=== PATIENT | female | born 1985 | race Caucasian/White ===

== ENCOUNTER 2023-02-27 10:59 | Day surgery (SDC) | payer BC ==
[2023-02-27 11:45] VITALS: BMI 41.3
[2023-02-27] MEDS ORDERED: hydrALAZINE 20 MG/ML VIAL SLOW IVP PRN (12:20)
[2023-02-28 13:54] LABS: Chlamydia by PCR, Vaginal Swab Not Detected (NotDetected); GC by PCR, Vaginal Swab Not Detected (NotDetected); Tric.vaginalis PCR,Vaginal Sw Not Detected (NotDetected)
== END 2023-02-27 13:49 | disposition home or self-care (01) ==
LOC: CSHLD/OP 10:59 → CSHLD 12:22 → CSHLD/OP 13:49
PROVIDERS: ATTEND Obstetrics & Gynecology
DX: Z36.89 Encounter for other specified antenatal screening (principal); O24.415 Gestational diabetes mellitus in pregnancy, controlled by oral hypoglycemic drugs; O13.3 Gestational [pregnancy-induced] hypertension without significant proteinuria, third trimester; O99.213 Obesity complicating pregnancy, third trimester; E66.9 Obesity, unspecified; Z3A.35 35 weeks gestation of pregnancy; Z79.84 Long term (current) use of oral hypoglycemic drugs; Z79.82 Long term (current) use of aspirin
CPT/HCPCS: 87480; 87491; 87510; 87591; 87660; 87661

== ENCOUNTER 2023-03-26 10:26 | Inpatient (IN) | payer OTHER ==
[2023-03-26 11:13] VITALS: BMI 41.3
[2023-03-26] MEDS ORDERED: Bicitra 30 ML UDCUP PO PRN (11:22)
[2023-03-26] MEDS ORDERED: Famotidine/PF 20 mg/2ml Vial SLOW IVP PRN (11:22)
[2023-03-26] MEDS ORDERED: Diphenoxylate HCl/Atropine Tablet PO PRN (11:22)
[2023-03-26] MEDS ORDERED: Tranexamic Acid 1,000 MG/10 ML VIAL IVP PRN (11:22)
[2023-03-26] MEDS ORDERED: Misoprostol 200 MCG TAB PR PRN (11:22)
[2023-03-26] MEDS ORDERED: Methylergonovine 0.2 MG/ML VIAL IM PRN (11:22)
[2023-03-26] MEDS ORDERED: Ondansetron PF 4 MG/2 ML Vial IVP PRN ×4 (11:22→23:01)
[2023-03-26] MEDS ORDERED: hydrALAZINE 20 MG/ML VIAL SLOW IVP PRN ×2 (11:22→13:17)
[2023-03-26] MEDS ORDERED: Promethazine HCl 25 MG/ML VIAL IM PRN ×3 (11:22→23:01)
[2023-03-26] MEDS ORDERED: Carboprost 250 MCG/ML AMP IM PRN (11:22)
[2023-03-26] MEDS ORDERED: Oxytocin 30 units/NS 500 ML 500 ML IV SCH (11:30)
[2023-03-26] MEDS ORDERED: CEFAZOLIN 2 GM in Sodium Chloride 0.9% 100 ML IVPB SCH (11:30)
[2023-03-26] MEDS ORDERED: CEFAZOLIN 2 GM VIAL ONE (11:42)
[2023-03-26 11:43] LABS: Hematocrit 37.8 % (34.9-44.5); Hemoglobin 12.5 g/dL (12.0-15.5); Mean Corpuscular HGB CONC 33.1 g/dL (32.0-36.0); Mean Corpuscular Hemoglobin 30.2 pg (27.0-33.0); Mean Corpuscular Volume 91.3 fl (81.6-98.3); Mean Platelet Volume 10.5 fl (7.4-10.4); Platelet Count 277 10x3/uL (150-450); Red Blood Cell (RBC) Count 4.14 10x6/uL (3.90-5.03); White Blood Cell (WBC) Count 9.8 10x3/uL (3.5-10.5)
[2023-03-26 11:53] LABS: ALT (SGPT) 18 U/L (8-55); AST (SGOT) 19 U/L (5-34); Albumin 3.5 g/dL (3.5-5.0); Alkaline Phosphatase 155 U/L (40-110); Anion Gap 15 mmol/L (10-20); BUN (Urea Nitrogen) 9 mg/dL (7.0-18.7); Bilirubin, Total 0.3 mg/dL (0.2-1.2); Calc. Creatinine Clearance 202 mL/min (70-130); Calcium 8.8 mg/dL (7.8-10.44); Carbon Dioxide 17 mmol/L (22-29); Chloride 109 mmol/L (98-107); Estimated GFR 119; Globulin 3.2 g/dL (2.4-3.5); Glucose 88 mg/dL (70-105); Potassium 3.9 mmol/L (3.5-5.1); Protein, Total 6.7 g/dL (6.0-8.3); Sodium 137 mmol/L (136-145)
[2023-03-26] MEDS ORDERED: fentaNYL 50 mcg/mL 1 mL Vial ONE ×2 (11:53→12:59)
[2023-03-26] MEDS ORDERED: Morphine PF 10 MG/10 ML VIAL ONE (11:53)
[2023-03-26] MEDS ORDERED: Oxytocin 10 UNITS/ML VIAL ONE (11:54)
[2023-03-26] MEDS ORDERED: Phenylephrine 10 MG/ML VIAL ONE (11:54)
[2023-03-26] MEDS ORDERED: Ondansetron PF 4 MG/2 ML Vial ONE (11:54)
[2023-03-26] MEDS ORDERED: Sterile Water 10 ML ONE (11:55)
[2023-03-26] MEDS ORDERED: Phenylephrine 40 MG/NS 250 ML 250 ML ONE (11:56)
[2023-03-26 12:12] LABS: HBSAg Index 0.14 S/CO (0-0.99); Hep B Surf Ag - L&D Non-Reactive S/CO (NonReactive)
[2023-03-26 12:13] LABS: Syphilis Antibody Nonreactive (Nonreactive); Syphilis Antibody Index 0.04 S/CO (<1.00 Non-Reactive)
[2023-03-26] MEDS ORDERED: Phytonadione Neonatal 1 MG/0.5 ML AMP ONE (12:13)
[2023-03-26] MEDS ORDERED: Hepatitis B Vaccine 10 MCG/0.5 ML SYR ONE (12:13)
[2023-03-26] MEDS ORDERED: Erythromycin Base 0.5% Oint 1 GM TUBE ONE (12:13)
[2023-03-26] MEDS ORDERED: Famotidine/PF 20 mg/2ml Vial ONE (12:24)
[2023-03-26] MEDS ORDERED: Midazolam HCl 2 mg/2 ml Vial ONE (13:00)
[2023-03-26] MEDS ORDERED: Zolpidem Tartrate 5 MG TAB PO PRN (13:17)
[2023-03-26] MEDS ORDERED: Acetaminophen 325 MG TAB PO PRN (13:17)
[2023-03-26] MEDS ORDERED: Lanolin Ointment 7 GM TUBE TOP PRN (13:17)
[2023-03-26] MEDS ORDERED: HYDROcodone/Acetaminophen 5/325 mg Tablet PO PRN (13:17)
[2023-03-26] MEDS ORDERED: diphenhydrAMINE 25 MG CAP PO PRN ×2 (13:17→23:01)
[2023-03-26] MEDS ORDERED: Boostrix 0.5 ML (Tdap) VIAL (>/=7 yrs of age) IM ONE (13:17)
[2023-03-26] MEDS ORDERED: Moisturizing Cream (Eucerin) 113 GM JAR TOP PRN (13:38)
[2023-03-26] MEDS ORDERED: Naloxone HCl 0.4 mg/ml Vial IV PRN ×2 (13:38→23:01)
[2023-03-26] MEDS ORDERED: Promethazine HCl 25 MG SUPP PR PRN (13:38)
[2023-03-26] MEDS ORDERED: diphenhydrAMINE 50 MG/ML VIAL IVP PRN ×2 (13:38→23:01)
[2023-03-26] MEDS ORDERED: Naloxone HCl 0.4 mg/ml Vial IVP PRN ×2 (13:38)
[2023-03-26] MEDS ORDERED: Meperidine HCl/PF 25 MG/ML VIAL SLOW IVP PRN (13:38)
[2023-03-26] MEDS ORDERED: Ketorolac Tromethamine 30 MG/ML VIAL IVP SCH (13:45)
[2023-03-26] MEDS ORDERED: Communication Order-Pharmacy FS SCH ×2 (13:45→23:15)
[2023-03-26] MEDS ORDERED: Ibuprofen 800 MG TAB PO SCH (14:00)
[2023-03-26] MEDS: fentaNYL 50 mcg/mL 1 mL Vial SLOW IVP PRN ×2 (16:16→16:38)
[2023-03-26] MEDS ORDERED: fentaNYL 50 mcg/mL 1 mL Vial SLOW IVP SCH (17:00)
[2023-03-26] MEDS: Lactated Ringer's 1,000 ML IV SCH ×2 (17:24→21:32)
[2023-03-26] MEDS: Ketorolac Tromethamine 30 MG/ML VIAL IVP PRN (21:20)
[2023-03-26] MEDS: Docusate 100 MG CAP PO SCH (21:20)
[2023-03-26] MEDS: Ferrous Sulfate 325 MG TAB PO SCH (21:32)
[2023-03-26] MEDS ORDERED: diphenhydrAMINE 50 MG/ML VIAL IM PRN (23:01)
[2023-03-26] MEDS ORDERED: FENTANYL 500 MCG/10 ML VIAL 2,000 MCG in Sodium Chloride 0.9% 60 ML IV PRN (23:01)
[2023-03-26] MEDS: FENTANYL 500 MCG/10 ML VIAL 1,000 MCG in Sodium Chloride 0.9% 30 ML IV PRN (23:56)
[2023-03-27] MEDS: Ketorolac Tromethamine 30 MG/ML VIAL IVP PRN ×2 (04:27→10:11)
[2023-03-27 04:33] LABS: Hematocrit 33.5 % (34.9-44.5); Hemoglobin 11.2 g/dL (12.0-15.5); Mean Corpuscular HGB CONC 33.4 g/dL (32.0-36.0); Mean Corpuscular Volume 92.8 fl (81.6-98.3); Mean Platelet Volume 10.4 fl (7.4-10.4); Platelet Count 230 10x3/uL (150-450); RBC Distribution Width 13.8 % (11.5-14.5); Red Blood Cell (RBC) Count 3.61 10x6/uL (3.90-5.03); White Blood Cell (WBC) Count 11.7 10x3/uL (3.5-10.5)
[2023-03-27] MEDS: Lactated Ringer's 1,000 ML IV SCH ×2 (06:13→15:05)
[2023-03-27] MEDS: Prenatal Vitamin 1 TAB PO SCH (07:50)
[2023-03-27] MEDS: Ferrous Sulfate 325 MG TAB PO SCH ×2 (07:50→21:02)
[2023-03-27] MEDS: Docusate 100 MG CAP PO SCH ×2 (07:50→20:58)
[2023-03-27] MEDS: FENTANYL 500 MCG/10 ML VIAL 1,000 MCG in Sodium Chloride 0.9% 30 ML IV PRN (07:51)
[2023-03-27] MEDS: Simethicone Chewable 80 MG TAB PO PRN ×2 (15:10→20:58)
[2023-03-27] MEDS: HYDROcodone/Acetaminophen 5/325 mg Tablet PO PRN ×3 (16:58→21:01)
[2023-03-27] MEDS: Ibuprofen 800 MG TAB PO SCH (21:54)
[2023-03-28] MEDS: HYDROcodone/Acetaminophen 5/325 mg Tablet PO PRN ×6 (01:09→21:20)
[2023-03-28] MEDS: Simethicone Chewable 80 MG TAB PO PRN ×3 (05:13→17:07)
[2023-03-28] MEDS: Ibuprofen 800 MG TAB PO SCH ×3 (05:13→21:20)
[2023-03-28] MEDS: Lactated Ringer's 1,000 ML IV SCH (05:46)
[2023-03-28] MEDS ORDERED: Morphine PF 10 MG/10 ML VIAL ONE (07:03)
[2023-03-28] MEDS ORDERED: fentaNYL 50 mcg/mL 1 mL Vial ONE (07:03)
[2023-03-28] MEDS ORDERED: Ondansetron PF 4 MG/2 ML Vial ONE (07:03)
[2023-03-28] MEDS ORDERED: PHENYLEPHRINE-NS 100 MCG/ML 10 ML SYRINGE ONE (07:03)
[2023-03-28] MEDS ORDERED: Dexamethasone 4 mg/ml Vial ONE (07:03)
[2023-03-28] MEDS ORDERED: Oxytocin 10 UNITS/ML VIAL ONE (07:03)
[2023-03-28] MEDS: Docusate 100 MG CAP PO SCH ×2 (09:02→21:20)
[2023-03-28] MEDS: Prenatal Vitamin 1 TAB PO SCH (09:02)
[2023-03-28] MEDS: Ferrous Sulfate 325 MG TAB PO SCH ×2 (09:03→21:10)
[2023-03-29] MEDS: Simethicone Chewable 80 MG TAB PO PRN ×2 (01:33→09:38)
[2023-03-29] MEDS: HYDROcodone/Acetaminophen 5/325 mg Tablet PO PRN ×3 (01:34→09:37)
[2023-03-29] MEDS: Ibuprofen 800 MG TAB PO SCH (05:35)
[2023-03-29] MEDS: Ferrous Sulfate 325 MG TAB PO SCH (07:14)
[2023-03-29 07:41] VITALS: BP 128/82; TEMP 98.1
[2023-03-29] MEDS: Prenatal Vitamin 1 TAB PO SCH (08:38)
[2023-03-29] MEDS: Docusate 100 MG CAP PO SCH (08:39)
== END 2023-03-29 10:40 | disposition home or self-care (01) | DRG 787 ==
LOC: CSHLD 10:26 → CSHPP 15:46
PROVIDERS: ADMIT Obstetrics & Gynecology; ATTEND Obstetrics & Gynecology
PROC: 10D00Z1 Extraction of Products of Conception, Low, Open Approach (ICD-10-PCS; principal; 2023-03-26)
DX: O10.92 Unspecified pre-existing hypertension complicating childbirth (principal); E74.21 Galactosemia; E66.9 Obesity, unspecified; O24.425 Gestational diabetes mellitus in childbirth, controlled by oral hypoglycemic drugs; O99.214 Obesity complicating childbirth; O34.211 Maternal care for low transverse scar from previous cesarean delivery; O99.284 Endocrine, nutritional and metabolic diseases complicating childbirth; Z3A.39 39 weeks gestation of pregnancy; Z79.84 Long term (current) use of oral hypoglycemic drugs; Z37.0 Single live birth
CPT/HCPCS: 36415; 36416; 80053; 85027; 86780; 86850; 86900; 86901; 87340; J1100; J1650; J1885; J2250; J2274; J2370; J2405; J2590; J3010; J3490; J7120; S0028